=== PATIENT | female | born 1960 | race Two or more races ===

== ENCOUNTER 2016-04-18 16:51 | Emergency (ER) | payer OTHER ==
[2016-04-18 17:07] VITALS: RESP 18; TEMP 98; O2SAT 97
--- NOTE | 2016-04-18 17:35 | UCPHY ---
[id number] 4d 04/18/16 17:32 HPI/ROS: HPI: 55-year-old female presents to urgent care with chief concern right 5th finger tip avulsion injury. Occurred 1 hour prior to arrival when she was using a clean non serrated knife at home. Washed area, wrapped and presents for evaluation. Up-to-date with tetanus. Left hand dominant. Denies numbness, tingling, weakness, or decreased range of motion to the finger. Review of Systems: Constitutional: no fever Cardiac: No cool, dusky extremity GI: no nausea vomiting Musculoskeletal: No decreased range of motion, joint or muscle pain Skin: See HPI Neuro: no numbness, tingling, or weakness. no decreased sensation. (Lina Bowman) Physical Exam: Vital signs stable, reviewed by me General: Awake, alert, calm, cooperative. No acute distress. Head: Normalocephalic. Atraumatic. EENT: PERRLA. EOMI. CV: Radial pulses 2+ bilaterally. Brisk cap refill all extremities. Neuro: Alert. Oriented x 3. Speech clear. Sensation intact all extremities. Specifically sensation is intact to the right 5th finger. Skin: Skin warm, dry. There is a superficial 1 cm diameter finger tip avulsion tip of right 5th finger. Musculoskeletal: Strength 5+ all extremities. Full range of motion right hand, right 5th finger (Lina Bowman) Constitutional: Initial Vital Signs Temperature (C) 36.6 C 04/18/16 17:00 Heart Rate 85 04/18/16 17:00 Respiratory Rate 18 04/18/16 17:00 Blood Pressure 107/62 04/18/16 17:00 O2 Sat (%) 97 04/18/16 17:00 O2 Delivery Mode Room Air Allergies/Adverse Reactions: No Known Allergies Allergy (Unverified 08/31/10 20:19) Home Medications: Medication Instructions Recorded NO HOME MEDICATIONS 08/31/10 MDM/Departure - MDM ED Course/Re-evaluation: Finger tip avulsion cleansed with warm, soapy water per Urgent Care protocol. Surgicel applied. Copious amount of bacitracin applied. Tube gauze applied. Patient tolerated. (Lina Bowman) The patient was evaluated and managed by the nurse practitioner, Lina Bowman. My co-signature indicates that I have reviewed this chart and I agree with the findings and plan of care as documented. I am the secondary supervising physician. (Bozena Howard) - Depart Disposition: Home, Routine, Self-Care Clinical Impression: Avulsion of finger tip Qualifiers: Encounter type: initial encounter Qualifier Code: (S61.209A) Unspecified open wound of unspecified finger without damage to nail, initial encounter Instructions: Skin Avulsion (ED) Additional Instructions: Plan: Keep dressing in place for 24 hours Thereafter, remove dressing. Clean with warm, soapy water gently. Apply copious amount of antibiotic ointment and a new and nonstick dressing. Do this daily until the area begins to re epithelialize. If you develop increased redness, swelling, drainage, red streaking, fever, nausea or vomiting follow-up for recheck promptly Keep elevated while at rest Minimize activity with this finger You may use 600 mg of ibuprofen every 6 hours for fever, inflammation, or pain. Always take ibuprofen with food and stay well hydrated while taking. Do not exceed the maximum allowable dose in a 24 hour period which is 2400 mg. You may use 1000 mg of Tylenol every 8 hours. This may be staggered with the ibuprofen. Do not exceed the maximum dose in a 24 hour period which is 3 GM or 3000 mg. Follow up with primary care for recheck later this week or next week--When you call to schedule appointment, please let the office know you are an "ER follow up" appointment" Referrals: Cintia Celis MD [Primary Care Provider] - As per Instructions - PQRS PQRS Measurement: Not applicable (Lina Bowman)
[2016-04-18 17:48] VITALS: BP 110/62; PULSE 67
== END 2016-04-18 17:46 | disposition home or self-care (01) ==
LOC: CED 16:51
DX: S61.206A Unspecified open wound of right little finger without damage to nail, initial encounter (principal)
CPT/HCPCS: 99213-PO; G0463-PO

== ENCOUNTER → 2017-01-21 | Outpatient (CLI) | payer OTHER | LOC: FIMAGING 16:08 | PROVIDERS: ATTEND Family Medicine | DX: Z12.31 Encounter for screening mammogram for malignant neoplasm of breast (principal) | CPT/HCPCS: G0202 ==

== ENCOUNTER → 2018-02-10 | Outpatient (CLI) | payer OTHER | LOC: FIMAGING 07:23 | PROVIDERS: ATTEND Family Medicine | DX: R74.8 Abnormal levels of other serum enzymes (principal) ==